=== PATIENT | male | born 1985 | race Caucasian/White ===

== ENCOUNTER → 2016-11-06 | Outpatient (CLI) | payer OTHER ==
[~2016-11-06] MED LIST: ACHD5005 PO; ACHYD1T PO; CEPH-38 PO; CEPH-507 PO; CYCL10TA9 PO; HYDR-3876 PO; HYDR1CAP2 PO; HYDR1TAB PO; MPR22T TOP; NAPR-243 PO; PROP1TAB77
--- NOTE | 2016-11-06 12:12 | Diagnostic Imaging Report ---
PROCEDURE: CT urinary tract, rule out kidney stone. TECHNIQUE: Multiple contiguous axial images were obtained through the abdomen and pelvis without the use of intravenous contrast. INDICATION: Left flank pain. FINDINGS: The lung bases appear clear. The liver, the spleen, the pancreas, the gallbladder, and the adrenal glands appear unremarkable. The kidneys have no stones or hydronephrosis. No ureteric or bladder stones. Pelvic calcifications appear to relate to phleboliths. The abdominal aorta is normal in caliber. No para-aortic significantly enlarged lymph node is seen. There is no significant free fluid or fluid collection in the abdomen or pelvis. Tiny fat-containing umbilical hernia is seen. The prostate is not enlarged. There is no bowel obstruction. The appendix is not clearly identified. The osseous structures demonstrate subcentimeter sclerotic foci around the left hip likely related to bony islands. IMPRESSION: 1. No urinary tract stones or hydronephrosis. 2. Tiny fat-containing umbilical hernia. Dictated by: Dictated on workstation # [id number]
== END ==
LOC: RAD 11:24
PROVIDERS: ATTEND Nurse Practitioner Family
DX: R10.9 Unspecified abdominal pain; K42.9 Umbilical hernia without obstruction or gangrene
CPT/HCPCS: 74176

== ENCOUNTER → 2017-08-14 | Outpatient (CLI) | payer SELFPAY ==
[~2017-08-14] MED LIST changes: +GADOBUTROL 15 MMOL/15 ML (GADAVIST) VIAL IV ONE
--- NOTE | 2017-08-14 14:07 | Diagnostic Imaging Report ---
CLINICAL INDICATION: Patient has had headaches on the back of his head x2 months now. EXAM: MRI of the brain performed without and with 11 cc of Gadovist IV contrast. Sequences include axial DWI, ADC map, axial gradient echo, axial T2, axial FLAIR, axial T1, axial T1 post IV contrast, coronal T1 fat-sat post IV contrast, and sagittal T1 post IV contrast. COMPARISON: None. FINDINGS: There is no evidence of acute cerebral infarct, intracranial hemorrhage, or gross mass effect. There is no abnormal IV contrast enhancement. The brain parenchymal volume appears appropriate for patient's age. There is normal carter-white matter distinction. There is no significant midline shift or herniation. The lower [place] vascular structures show no gross abnormality as visualized. The pituitary gland, sella, and suprasellar regions are unremarkable as visualized. There is no evidence of hydrocephalus. The basal cisterns are unremarkable. The skull, extracranial soft tissue, and orbits are unremarkable. There are small areas of mucus retention cyst or polyps involving the left maxillary sinus. There is minimal ethmoid sinus mucosal thickening. Temporal bones show no significant abnormality. IMPRESSION: Mild paranasal sinus disease. Otherwise, unremarkable MRI of the brain. Dictated by: Dictated on workstation # [id number]
== END ==
LOC: RAD 10:59
PROVIDERS: ATTEND Internal Medicine Gastroenterology
DX: J32.9 Chronic sinusitis, unspecified (principal)
CPT/HCPCS: 70553

== ENCOUNTER 2021-01-06 10:57 | Emergency (ER) | payer SELFPAY ==
[~2021-01-06] VITALS: Ht 177.8 cm; Wt 102.1 kg
[~2021-01-06 10:57] MED LIST changes: -GADOBUTROL 15 MMOL/15 ML (GADAVIST) VIAL IV ONE; -HYDR-3876 PO; +HYDR-3920 PO
--- NOTE | 2021-01-06 11:36 | ED Abdominal Pain ---
General Stated Complaint: R SIDED PAIN/BACK Source of Information: Patient Exam Limitations: No Limitations History of Present Illness Date Seen by Provider: Jan 06, 2021 Time Seen by Provider: 11:20 Initial Comments Patient is a 35-year-old male who presents to the emergency department today with a chief complaint of right flank pain. Patient states it started kind of in his right back. Onset about 2 weeks ago. He had lifted a big heavy container of metal objects around the time of the onset of the pain. Patient went to [facility] was diagnosed with "muscle strain" placed on cyclobenzaprine and naproxen. Patient states that he has not really been taking those as prescribed. He was concerned about his liver and his kidney. Patient has a family history of kidney failure/kidney disease. He denies any fevers, chills, rashes. No nausea vomiting or diarrhea. No black or bloody stools. No increased urinary frequency or decreased urinary frequency. No darker than normal urine or blood in his urine. Pain does not radiate into his groin. No history of kidney stones. He states it does radiate a little bit around to the right lower anterior ribs. He is not a heavy drinker. No history of hepatitis. All other review of systems reviewed and negative except as stated. Timing/Duration: Other (2 weeks, intermittent) Severity/Quality: Mild, Cramping Location: RUQ Radiation: Other (right anterior lower ribs/RUQ) Associated Symptoms: Denies Symptoms Allergies and Home Medications Allergies Coded Allergies: No Known Drug Allergies (Unverified , 10/19/08) Patient Home Medication List Home Medication List Reviewed: Yes Cephalexin (Keflex) 500 Mg Capsule, 500 MG PO BID Prescribed by: RAIN ORELLANA on 06/16/15926 Hydrocodone/Acetaminophen (Lorcet Hd 10-325 mg Tablet) 1 Each Tablet, 1-2 TAB PO Q4H PRN for PAIN Prescribed by: RAIN ORELLANA on 06/16/15926 Review of Systems Review of Systems Constitutional: see HPI EENTM: No Symptoms Reported Respiratory: No Symptoms Reported Cardiovascular: No Symptoms Reported Gastrointestinal: Abdominal Pain (RUQ and right flank) Genitourinary: No Symptoms Reported Musculoskeletal: back pain (right posterior lower ribs) All Other Systems Reviewed Negative Unless Noted: Yes Past Mofvhfn-Iwgmam-Rlmuyt Hx Immunizations Up To Date Tetanus Booster (TDap): Unknown PED Vaccines UTD: Yes Past Medical History Asthma Reproductive Disorders: No (HYDROCELE) Sexually Transmitted Disease: No HIV/AIDS: No Loss of Vision: Denies Family Medical History Alzheimer's disease Colon cancer Hypertension Kidney disease No Family History of: AIDS Abdominal aortic aneurysm [place]'s disease Alcoholism Aphasia Arthritis Asthma Cancer of mouth Cardiovascular disease Cataracts Completed stroke Congenital disease Congenital heart disease Coronary thrombosis Cystic fibrosis Deafness or hearing loss Dementia Diabetes mellitus Drug abuse Dysphasia Fibrocystic disease of breast Gastroenteritis Glaucoma Headache disorder Hypercholesterolemia Infertility Myocardial infarction Neoplasm Not obtainable due to adoption Osteoporosis Parkinson's disease Prostate cancer Psychosocial problem Respiratory disorder Seizure disorder Severe allergy Thyroid disease Tuberculosis Visual disorder Physical Exam Vital Signs Vital Signs - First Documented 01/06/21 11:19 Temp 36.4 Pulse 73 Resp 18 B/P (MAP) 142/91 (108) Pulse Ox 99 O2 Delivery Room Air Capillary Refill : Height/Weight/BMI Height: 5'10.00" Weight: 230lbs. 5.0oz. [id number]; 33.00 BMI Method:Stated General Appearance: WD/WN, no apparent distress HEENT: PERRL/EOMI Respiratory: chest non-tender, lungs clear, normal breath sounds, no respiratory distress, no accessory muscle use Cardiovascular: regular rate, rhythm, no murmur Gastrointestinal: normal bowel sounds, non tender, soft, other (negative Michel's sign; no CVA tenderness; no real reproducible tenderness along the area of concern. no hepatomegaly) Extremities: non-tender, normal inspection Back: normal inspection, no CVA tenderness, no vertebral tenderness Neurologic/Psychiatric: alert, normal mood/affect, oriented x 3 Skin: normal color, warm/dry Progress/Results/Core Measures Results/Orders Lab Results Laboratory Tests Test 01/06/21 11:34 Range/Units Sodium Level 137 135-145 MMOL/L Potassium Level 4.2 3.6-5.0 MMOL/L Chloride Level 103 98-107 MMOL/L Carbon Dioxide Level 27 21-32 MMOL/L Anion Gap 7 5-14 MMOL/L Blood Urea Nitrogen 11 7-18 MG/DL Creatinine 0.87 0.60-1.30 MG/DL Estimat Glomerular Filtration Rate 100 BUN/Creatinine Ratio 13 Glucose Level 98 70-105 MG/DL Calcium Level 9.5 8.5-10.1 MG/DL Corrected Calcium 8.5-10.1 MG/DL Total Bilirubin 0.8 0.1-1.0 MG/DL Aspartate Amino Transf (AST/SGOT) 22 5-34 U/L Alanine Aminotransferase (ALT/SGPT) 35 0-55 U/L Alkaline Phosphatase 41 40-136 U/L Total Protein 7.2 6.4-8.2 GM/DL Albumin 4.6 H 3.2-4.5 GM/DL My Orders Orders - ANA ROJAS MD Comprehensive Metabolic Panel (01/06/21 11:30) Vital Signs/I&O 01/06/21 11:19 Temp 36.4 Pulse 73 Resp 18 B/P (MAP) 142/91 (108) Pulse Ox 99 O2 Delivery Room Air Departure Impression Primary Impression: Right flank pain Disposition: HOME, SELF-CARE Condition: Stable Departure-Patient Inst. Decision time for Depature: 11:34 Referrals: CATHY SAUCEDO MD (PCP/Family) Primary Care Physician Patient Instructions: Flank Pain (DC) Add. Discharge Instructions: Please take the Naproxen twice a day with food for the anti-inflammatory properties. This should help ease the frequency of your pain. Do this for about 5 days. Keep your follow up with [facility] later in the month. Return to the Emergency Department if you develop any further symptoms, such as, nausea/vomiting, diarrhea, fever or other emergent concerns. ANA ROJAS MD Jan 06, 2021 11:36
[2021-01-06 11:51] LABS: ALBUMIN 4.6 GM/DL (3.2-4.5); CHLORIDE 103 MMOL/L (98-107); POTASSIUM 4.2 MMOL/L (3.6-5.0); SODIUM 137 MMOL/L (135-145)
[2021-01-06 11:53] LABS: CALCIUM 9.5 MG/DL (8.5-10.1)
[2021-01-06 11:54] LABS: GLUCOSE 98 MG/DL (70-105); TOTAL PROTEIN 7.2 GM/DL (6.4-8.2)
[2021-01-06 11:55] LABS: CARBON DIOXIDE 27 MMOL/L (21-32)
[2021-01-06 11:56] LABS: BILIRUBIN,TOTAL 0.8 MG/DL (0.1-1.0)
[2021-01-06 11:57] LABS: ALKALINE PHOSPHATASE 41 U/L (40-136); CREATININE SERUM 0.87 MG/DL (0.60-1.30); GFR ESTIMATED 100
[2021-01-06 11:58] LABS: BUN/CREATININE RATIO 13
[2021-01-06 12:00] LABS: ALANINE AMINOTRANSFERASE 35 U/L (0-55)
[2021-01-06 12:57] VITALS: BP 130/82
== END 2021-01-06 12:57 | disposition home or self-care (01) ==
LOC: EDUNIT# 10:57 → ER 11:00
DX: R10.11 Right upper quadrant pain (principal); J45.909 Unspecified asthma, uncomplicated
CPT/HCPCS: 36415; 80053

== ENCOUNTER 2021-01-22 17:59 | Emergency (ER) | payer SELFPAY ==
[~2021-01-22] VITALS: Ht 177 cm; Wt 101.6 kg
[2021-01-22] MEDS ORDERED: PRD20T PO (18:30)
[2021-01-22] MEDS ORDERED: methylPREDNISolone 125 MG (Solu-MEDROL) VIAL IM ONE (18:30)
[2021-01-22] MEDS ORDERED: FAMOTIDINE 20 MG (PEPCID) TABLET PO ONE (18:30)
--- NOTE | 2021-01-22 18:30 | ED Integumentary General ---
General Chief Complaint: Allergic Reaction Stated Complaint: ALLERGIC REACTION Nursing Triage Note: Pt ambulatory to ER. Pt c/o rash to feet, groin, buttocks, chest, neck. Pt reports possibly allergic to breading that was consumed at [facility] last night. Pt denies any med changes, detergant changes. Pt reports taking Benadryl and Claritan around 1200 today. Pt denies any SOB or breathing complaints. Source: patient Exam Limitations: no limitations History of Present Illness Date Seen by Provider: Jan 22, 2021 Time Seen by Provider: 18:11 Initial Comments Patient ER by private conveyance with chief complaint that since last night after eating a [facility] sandwich which was spicy chicken he has developed a rash over his dorsum of his feet, shoulders neck torso and face. It is sometimes itchy but he can resist itching it by taking Claritin and Benadryl. He has had this before when he ate a [employer] spicy chicken. He does not have a significant bout of allergies. No new detergents soaps or dryer sheets. He does not take medicines. He denies any significant medical history. He is not having any shortness of air tongue swelling or difficulty breathing, stridor etc. He says his grandmother on his mother side had a tremendous difficulty with allergies and hives. Allergies and Home Medications Allergies Coded Allergies: No Known Drug Allergies (Unverified , 10/19/08) Patient Home Medication List Home Medication List Reviewed: Yes Cephalexin (Keflex) 500 Mg Capsule, 500 MG PO BID Prescribed by: RAIN ORELLANA on 06/16/15926 Hydrocodone/Acetaminophen (Lorcet Hd 10-325 mg Tablet) 1 Each Tablet, 1-2 TAB PO Q4H PRN for PAIN Prescribed by: RAIN ORELLANA on 06/16/15926 Review of Systems Review of Systems Constitutional: No chills, No fever EENTM: No ear discharge, No ear pain Respiratory: No cough, No phlegm, No short of breath, No stridor, No wheezing Cardiovascular: No edema, No palpitations Gastrointestinal: No abdominal pain, No nausea, No vomiting Genitourinary: No discharge, No dysuria All Other Systems Reviewed Negative Unless Noted: Yes Past Tumclsz-Gafbrl-Xfpbdo Hx Patient Social History Tobacco Use?: No Use of E-Cig and/or Vaping dev: No Alcohol Use?: Yes Alcohol type: Beer Alcohol Frequency: Several times a month Immunizations Up To Date Tetanus Booster (TDap): Unknown PED Vaccines UTD: Yes Past Medical History Asthma Reproductive Disorders: No (HYDROCELE) Sexually Transmitted Disease: No HIV/AIDS: No Loss of Vision: Denies Family Medical History Alzheimer's disease Colon cancer Hypertension Kidney disease No Family History of: AIDS Abdominal aortic aneurysm Arthur's disease Alcoholism Aphasia Arthritis Asthma Cancer of mouth Cardiovascular disease Cataracts Completed stroke Congenital disease Congenital heart disease Coronary thrombosis Cystic fibrosis Deafness or hearing loss Dementia Diabetes mellitus Drug abuse Dysphasia Fibrocystic disease of breast Gastroenteritis Glaucoma Headache disorder Hypercholesterolemia Infertility Myocardial infarction Neoplasm Not obtainable due to adoption Osteoporosis Parkinson's disease Prostate cancer Psychosocial problem Respiratory disorder Seizure disorder Severe allergy Thyroid disease Tuberculosis Visual disorder Physical Exam Vital Signs Vital Signs - First Documented 01/22/21 18:05 Temp 36.9 Pulse 105 Resp 18 B/P (MAP) 151/91 (111) Pulse Ox 97 O2 Delivery Room Air Capillary Refill : General Appearance: WD/WN, no apparent distress HEENT: PERRL/EOMI, normal ENT inspection, pharynx normal Neck: non-tender, full range of motion, supple, other (Erythematous hives mildly pruritic) Cardiovascular: normal peripheral pulses, regular rate, rhythm, no edema Respiratory: no respiratory distress, no accessory muscle use Neurologic/Psychiatric: alert, normal mood/affect, oriented x 3 Skin: other (Erythematous patches with confluence over the dorsum of the feet, shoulders, upper portion of bilateral upper extremities, neck face and portions of the torso including the groin and other folds.) Progress/Results/Core Measures Results/Orders Vital Signs/I&O 01/22/21 01/22/21 18:05 18:16 Temp 36.9 Pulse 105 106 Resp 18 20 B/P (MAP) 151/91 (111) 133/73 Pulse Ox 97 98 O2 Delivery Room Air Room Air Blood Pressure Mean: 93 Progress Progress Note : Time: 18:26 Progress Note Patient appears to have urticaria with hives. We will put him on a histamine blockade and some steroids with return precautions. Departure Impression Primary Impression: Hives Additional Impression: Urticaria Disposition: 01 HOME, SELF-CARE Condition: Stable Departure-Patient Inst. Decision time for Depature: 18:26 Referrals: CATHY SAUCEDO MD (PCP/Family) Primary Care Physician Patient Instructions: Hives (DC) Add. Discharge Instructions: Hives are a manifestation of your immune system being allergic to something shown in the skin. There is nothing physically wrong with the skin however if you scratch a lot and break the skin down then you can develop a bacterial infec tion secondarily. It is important to keep your skin clean and dry. You may use lotions to keep your skin healthy such as CeraVe, NeutraDerm or other similar hypoallergenic lotions as necessary. Keep your groin and other dependent areas clean and dry. A light dusting of powder such as Goldbond is recommended. We can block the itching by using antihistamines such as Claritin, Pepcid and Benadryl. Pepcid/famotidine 20 mg twice a day until the itching resolves usually 1 to 2 weeks at the most. Claritin 10 mg once or twice a day as necessary for rash and itching. Benadryl 1 to 2 tablets every 6 hours as necessary for breakthrough itching or significant increase in rash formation. This will cause drowsiness. Prednisone 2 tablets daily in the morning to reduce rash and itching for the next 5 days. Follow-up with primary care if your rash persists longer than a week or so. Return to the ER promptly if you are having difficulty breathing, tongue swelling, wheezing or stridor. All discharge instructions reviewed with patient and/or family. Voiced understanding. Scripts Prednisone (Prednisone) 20 Mg Tab 40 MG PO DAILY for 5 Days, #10 TAB 0 Refills Prov: RAMO BALTAZAR 01/22/21 Work/School Note: Work Release Form Date Seen in the Emergency Department: Jan 22, 2021 Return to Work: Jan 26, 2021 Restrictions: No Restrictions RAMO BALTAZAR Jan 22, 2021 18:29
[2021-01-22 18:40] VITALS: BP 146/91
== END 2021-01-22 18:41 | disposition home or self-care (01) ==
LOC: EDUNIT# 17:59 → ER 18:02
DX: L50.9 Urticaria, unspecified (principal); J45.909 Unspecified asthma, uncomplicated
CPT/HCPCS: 99284

== ENCOUNTER 2022-10-08 07:49 | Emergency (ER) | payer SELFPAY ==
[~2022-10-08] VITALS: Ht 177 cm; Wt 104.0 kg
[~2022-10-08 07:49] MED LIST changes: +PRD20T PO
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
[2022-10-08] MEDS ORDERED: TETANUS,DIPTH,PERTUSS P/F (BOOSTRIX) 0.5 ML VIAL IM ONE (09:30)
[2022-10-08] MEDS ORDERED: ACHD5005 PO (09:48)
[2022-10-08 09:58] VITALS: BP 135/96
== END 2022-10-08 09:58 | disposition home or self-care (01) ==
LOC: EDUNIT# 07:49 → ER 07:53
DX: S42.141A Displaced fracture of glenoid cavity of scapula, right shoulder, initial encounter for closed fracture (principal); S00.10XA Contusion of unspecified eyelid and periocular area, initial encounter; S00.01XA Abrasion of scalp, initial encounter; H11.31 Conjunctival hemorrhage, right eye; V86.99XA Unspecified occupant of other special all-terrain or other off-road motor vehicle injured in nontraffic accident, initial encounter; Y92.410 Unspecified street and highway as the place of occurrence of the external cause
CPT/HCPCS: 73030; 73200; 90715

== ENCOUNTER → 2022-10-18 | Outpatient (CLI) | payer OTHER ==
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
== END ==
LOC: RAD 11:52
PROVIDERS: ATTEND Family Medicine
DX: M75.101 Unspecified rotator cuff tear or rupture of right shoulder, not specified as traumatic (principal); M19.011 Primary osteoarthritis, right shoulder; S42.14 Fracture of glenoid cavity of scapula; S42.15 Fracture of neck of scapula; X58.XXXS Exposure to other specified factors, sequela
CPT/HCPCS: 73221